=== PATIENT | female | born 1950 | race Hispanic/Latino ===

== ENCOUNTER → 2017-09-17 | Outpatient (CLI) | payer OTHER | END | disposition home or self-care (01) | LOC: RAH 13:28 | PROVIDERS: ATTEND Internal Medicine | DX: Z12.31 Encounter for screening mammogram for malignant neoplasm of breast (principal) | CPT/HCPCS: 77067 ==

== ENCOUNTER → 2019-05-28 | Outpatient (CLI) | payer OTHER | END | disposition home or self-care (01) | LOC: RAH 11:47 | PROVIDERS: ATTEND Internal Medicine | DX: Z12.31 Encounter for screening mammogram for malignant neoplasm of breast (principal) | CPT/HCPCS: 77067 ==

== ENCOUNTER 2021-12-21 23:33 | Emergency (ER) | payer OTHER ==
[~2021-12-21] VITALS: Ht 165.1 cm; Wt 93.4 kg
[2021-12-22 00:18] LABS: BASOPHILS % (AUTO) 0.6 % (0.0-5.0); EOSINOPHILS % (AUTO) 1.1 % (0.0-8.0); HEMATOCRIT 37.1 % (36-48); LYMPHOCYTES % (AUTO) 19.7 % (21.0-51.0); MEAN CORPUSCULAR HEMOGLOBIN 28.4 pg (27.0-33.0); MEAN CORPUSCULAR HGB CONC 33.4 g/dL (32.0-36.0); MEAN CORPUSCULAR VOLUME 84.9 fL (79-99); MONOCYTES % (AUTO) 8.4 % (3.0-13.0); NEUTROPHILS % (AUTO) 69.7 % (40.0-77.0); PLATELET COUNT (AUTO) 236 K/uL (130-400); RED BLOOD CELL COUNT(AUTO) 4.37 MIL/uL (4.00-5.50); RED CELL DISTRIBUTION WIDTH 13.2 % (11.0-15.5); WHITE BLOOD COUNT (AUTO) 8.1 K/uL (4.8-10.8)
[2021-12-22 00:39] LABS: INR 0.93 (0.85-1.15); PROTHROMBIN TIME 9.7 SEC (9.6-11.6)
[2021-12-22 00:41] LABS: PARTIAL THROMBOPLASTIN TIME 23.6 SEC (26.3-35.5)
[2021-12-22 00:49] LABS: CREATININE 0.7 mg/dL (0.5-1.5); POTASSIUM 3.6 mmol/L (3.5-5.1)
[2021-12-22 00:53] LABS: ALBUMIN 3.6 g/dL (3.5-5.0); MAGNESIUM 1.6 mg/dL (1.80-2.40); TOTAL PROTEIN, SERUM 6.3 g/dL (6.0-8.3)
[2021-12-22] MEDS ORDERED: CLONIDINE HCL 0.2 MG TABLET PO ONE (01:30)
[2021-12-22] MEDS ORDERED: MAGNESIUM 2GM PREMIX 50ML 50 ML IV ONE (01:58)
[2021-12-22] MEDS ORDERED: MAGNESIUM 2GM PREMIX 50ML 50 ML IV SCH (02:00)
[2021-12-22 03:25] VITALS: BP 113/53
== END 2021-12-22 03:28 | disposition home or self-care (01) ==
LOC: EDH 23:33
DX: R00.2 Palpitations (principal); E78.00 Pure hypercholesterolemia, unspecified; E03.9 Hypothyroidism, unspecified; Z90.49 Acquired absence of other specified parts of digestive tract; Z98.890 Other specified postprocedural states
CPT/HCPCS: 99285; 71045; 83735; 84484; 80053; 85025; 85610; 85730; 36415; 93005; 96365; 96366; J3475

== ENCOUNTER → 2022-05-22 | Outpatient (CLI) | payer OTHER | END | disposition home or self-care (01) | LOC: RAH 12:21 | PROVIDERS: ATTEND Internal Medicine | DX: Z12.31 Encounter for screening mammogram for malignant neoplasm of breast (principal) | CPT/HCPCS: 77067 ==

== ENCOUNTER → 2024-01-11 | Outpatient (CLI) | payer OTHER | END | disposition home or self-care (01) | LOC: RAH 12:07 | PROVIDERS: ATTEND Internal Medicine | DX: Z12.31 Encounter for screening mammogram for malignant neoplasm of breast (principal); R92.333 Mammographic heterogeneous density, bilateral breasts | CPT/HCPCS: 77067 ==